=== PATIENT | female | born 1970 | race Caucasian/White ===

== ENCOUNTER 2017-05-21 19:20 | Emergency (ER) | payer MEDICARE ==
[~2017-05-21] VITALS: Ht 170.2 cm; Wt 72.6 kg
[~2017-05-21 19:20] MED LIST: DILANTIN100 MG; PYRIDOSTIGMINE60 MG; SPIRONOLACTONE25 MG; Z.0.BACLOFEN10 MG PO; Z.0.DILANTIN100 MG PO; Z.0.EFFEXOR75 MG PO; [UNRECOGNIZED DRUG - OTHER]
--- OUTSIDE RECORDS SUMMARY | 2017-05-21 19:23 | XMS REPORT ---
Author Author [facility] Organization [facility] Address Unknown Phone Unavailable Care Team Providers Care [employer] Worker Name Role Phone MELODIE HERNANDEZ Unavailable Unavailable Problems This patient has no known problems. Allergies, Adverse Reactions, Alerts This patient has no known allergies or adverse reactions. Medications This patient has no known medications. Results Test Description Test Time Test Comments Text Results Atomic Results Result Comments ANKLE 3 + VIEWS RIGHT [place] [address] Patient Name: MERCY MCCAULEY MR #: [id number] : 1970 Age/Sex: 46/F Req #: [id number] [facility] Physician: Ordered by: CARLEY COLLINS Report #: [id number] Location: ER Room/Bed: Procedure: [id number] DX/ANKLE 3 + VIEWS RIGHT Exam Date: 01/10/17 Exam Time: 1220 REPORT STATUS: Signed PROCEDURE: X-RAY RIGHT ANKLE, COMPLETE TECHNIQUE: INDICATION: COMPARISON: None. FINDINGS: No acute displaced fracture. Soft tissue swelling is present in the lateral malleolus. No expansile lytic or sclerotic lesion. Bone mineralization is within normal limits. CONCLUSION: Subcutaneous swelling of the lateral malleolus, without underlying osseous abnormality, may represent soft tissue injury. Dictated by: Juan Manuel Lorenzo M.D. on 01/10/2017 at 13:41 Electronically approved by: Juan Manuel Lorenzo M.D. on 06/2016 at 13:41 Dictated By: JUAN MANUEL LORENZO MD 40 Transcribed By: CANDELARIA on 01/10/171340 COPY TO: CARLEY COLLINS LOWER LEG RIGHT [facility] [address] [place] [address] Patient Name: MERCY MCCAULEY MR #: [id number] : 1970 Age/Sex: 46/F Req #: [id number] Adm Physician: Ordered by: CARLEY COLLINS Report #: [id number] Location: ER Room/Bed: Procedure: [id number] DX/LOWER LEG RIGHT Exam Date: 01/10/17 Exam Time: 1220 REPORT STATUS: Signed PROCEDURE: X-RAY RIGHT LOWER LEG COMPARISON: None. INDICATIONS: FALL FINDINGS: There are no fractures, dislocations, lytic or blastic lesions. The bones are well- mineralized. Soft tissue swelling of the lateral malleolus. CONCLUSION : Soft tissue swelling of the lateral malleolus, without underlying osseous abnormality, may represent a ligamentous injury. Dictated by: Juan Manuel Lorenzo M.D. on 01/10/2017 at 13:44 Electronically approved by: Juan Manuel Lorenzo M.D. on 01/10/2017 at 13:44 Dictated By: JUAN MANUEL LORENZO MD 43 Transcribed By: CANDELARIA on 01/10/17 134 COPY TO: CARLEY COLLINS FEMUR TWO VIEW MINIMUM RIGHT [facility] [address] [place] [address] Patient Name: MERCY MCCAULEY MR #: [id number] : 1970 Age/Sex: 46/F Req #: [id number] Adm Physician: Ordered by: CARLEY COLLINS Report #: [id number] Location: ER Room/Bed: Procedure: [id number] DX/FEMUR TWO VIEW MINIMUM RIGHT Exam Date: Exam Time: REPORT STATUS: Signed PROCEDURE: FEMUR TWO VIEW MINIMUM RIGHT COMPARISON: None. INDICATIONS: FALL FINDINGS: There are no fractures, dislocations, lytic or blastic lesions. The bones are well-mineralized. The soft-tissues are unremarkable. CONCLUSION: No acute radiographic abnormality. Dictated by: Juan Manuel Lorenzo M.D. on 01/10/2017 at 13:44 Electronically approved by: Juan Manuel Lorenzo M.D. on 01/10/2017 at 13:44 Dictated By: JUAN MANUEL LORENZO MD 43 Transcribed By: CANDELARIA on 01/10/17 134 COPY TO: CARLEY COLLINS PELVIS AP 1-2 VIEWS [place] [address] Patient Name: MERCY MCCAULEY MR #: [id number] : 1970 Age/Sex: 46/F Req #: [id number] Adm Physician: Ordered by: CARLEY COLLINS Report #: [id number] Location: ER Room/Bed: Procedure: [id number] DX/PELVIS AP 1-2 VIEWS Exam Date: 01/10/17 Exam Time : 1220 REPORT STATUS: Signed PROCEDURE: X-RAY PELVIS, AP VIEW COMPARISON: None. INDICATIONS: FALL FINDINGS: There are no fractures, dislocations, lytic or blastic lesions. The bones are well- mineralized. The soft-tissues are unremarkable. Phleboliths are present in the pelvis. CONCLUSION: No acute radiographic abnormality. Dictated by: Juan Manuel Lorenzo M.D. on 01/10/2017 at 13:49 Electronically approved by: Juan Manuel Lorenzo M.D. on 01/10/2017 at 13:49 Dictated By: JUAN MANUEL LORENZO MD [id number] COPY TO: CARLEY COLLINS
[2017-05-21] MEDS ORDERED: TYLENOL WITH C1 EACH PO (22:30)
[2017-05-21] MEDS ORDERED: ROBAXIN-750750 MG PO (22:38)
== END 2017-05-21 23:00 | disposition home or self-care (01) ==
LOC: FSED 19:20
DX: R07.89 Other chest pain (principal); S22.31XA Fracture of one rib, right side, initial encounter for closed fracture; W01.0XXA Fall on same level from slipping, tripping and stumbling without subsequent striking against object, initial encounter; Y93.01 Activity, walking, marching and hiking; Y92.008 Other place in unspecified non-institutional (private) residence as the place of occurrence of the external cause; G80.9 Cerebral palsy, unspecified; G40.909 Epilepsy, unspecified, not intractable, without status epilepticus

== ENCOUNTER 2018-04-07 12:28 | Emergency (ER) | payer MEDICARE ==
[~2018-04-07] VITALS: Ht 170.2 cm; Wt 72.6 kg
[~2018-04-07 12:28] MED LIST changes: +ROBAXIN-750750 MG PO; +TYLENOL WITH C1 EACH PO
[2018-04-07] MEDS ORDERED: ROBAXIN-750750 MG PO (13:04)
[2018-04-07] MEDS ORDERED: IBUPROFEN400 MG PO (13:04)
== END 2018-04-07 13:35 | disposition home or self-care (01) ==
LOC: FSED 12:37
DX: G89.11 Acute pain due to trauma (principal); S30.0XXA Contusion of lower back and pelvis, initial encounter; S39.012A Strain of muscle, fascia and tendon of lower back, initial encounter; W18.09XA Striking against other object with subsequent fall, initial encounter; Y92.008 Other place in unspecified non-institutional (private) residence as the place of occurrence of the external cause; G80.9 Cerebral palsy, unspecified; F41.9 Anxiety disorder, unspecified; G40.909 Epilepsy, unspecified, not intractable, without status epilepticus
CPT/HCPCS: 99283

== ENCOUNTER 2020-10-09 14:16 | Emergency (ER) | payer MEDICARE, OTHER ==
[~2020-10-09] VITALS: Ht 167.6 cm; Wt 73.5 kg
[~2020-10-09 14:16] MED LIST changes: +IBUPROFEN400 MG PO
== END 2020-10-09 19:19 | disposition home or self-care (01) ==
LOC: FSED 15:26
DX: S00.83XA Contusion of other part of head, initial encounter (principal); W01.198A Fall on same level from slipping, tripping and stumbling with subsequent striking against other object, initial encounter; Y93.01 Activity, walking, marching and hiking; Y92.008 Other place in unspecified non-institutional (private) residence as the place of occurrence of the external cause; G80.9 Cerebral palsy, unspecified; G40.909 Epilepsy, unspecified, not intractable, without status epilepticus; F41.9 Anxiety disorder, unspecified; E03.9 Hypothyroidism, unspecified
CPT/HCPCS: 70450; 99283

== ENCOUNTER 2022-09-25 10:42 | Emergency (ER) | payer MEDICARE ==
[~2022-09-25] VITALS: Ht 170.2 cm; Wt 73.9 kg
[2022-09-25 10:58] VITALS: O2SAT 97
[2022-09-25] MEDS ORDERED: IBUPROFEN600 MG PO (11:50)
[2022-09-25] MEDS ORDERED: IBUPROFEN 600 MG TAB PO STA (11:52)
[2022-09-25] MEDS ORDERED: IBUPROFEN 600 MG TAB ONE (12:10)
== END 2022-09-25 12:48 | disposition home or self-care (01) ==
LOC: FSED 10:47
DX: S93.491A Sprain of other ligament of right ankle, initial encounter (principal); W01.0XXA Fall on same level from slipping, tripping and stumbling without subsequent striking against object, initial encounter; Y92.89 Other specified places as the place of occurrence of the external cause; G80.9 Cerebral palsy, unspecified; G40.909 Epilepsy, unspecified, not intractable, without status epilepticus; F41.9 Anxiety disorder, unspecified
CPT/HCPCS: 99283

== ENCOUNTER 2023-02-12 10:11 | Emergency (ER) | payer OTHER, MEDICARE ==
[~2023-02-12] VITALS: Ht 170.2 cm; Wt 73.9 kg
[~2023-02-12 10:11] MED LIST changes: +IBUPROFEN600 MG PO
[2023-02-12] MEDS ORDERED: TETANUS/DIPHTHERIA TOX ADULT 0.5 ML SYR ONE (10:59)
[2023-02-12] MEDS ORDERED: BACITRACIN ZINC 0.9GM TP ONE (11:00)
[2023-02-12] MEDS ORDERED: TETANUS/DIPHTHERIA TOX ADULT 0.5 ML SYR IM ONE (11:30)
[2023-02-12 12:00] VITALS: O2SAT 98
[2023-02-12] MEDS ORDERED: CEFDINIR300 MG PO (12:03)
== END 2023-02-12 12:14 | disposition home or self-care (01) ==
LOC: FSED 10:18
DX: S02.2XXA Fracture of nasal bones, initial encounter for closed fracture (principal); S60.512A Abrasion of left hand, initial encounter; W01.0XXA Fall on same level from slipping, tripping and stumbling without subsequent striking against object, initial encounter; Y93.01 Activity, walking, marching and hiking; Y92.89 Other specified places as the place of occurrence of the external cause; G40.909 Epilepsy, unspecified, not intractable, without status epilepticus; F41.9 Anxiety disorder, unspecified; G80.9 Cerebral palsy, unspecified
CPT/HCPCS: 70450; 70486; 72125; 90471; 90714; 99283

== ENCOUNTER 2023-10-23 15:42 | Emergency (ER) | payer MEDICARE ==
[~2023-10-23] VITALS: Ht 170.2 cm; Wt 73.9 kg
[~2023-10-23 15:42] MED LIST changes: +CEFDINIR300 MG PO
[2023-10-23 15:45] VITALS: RESP 18; TEMP 98.7
[2023-10-23] MEDS: ACETAMINOPHEN 325 MG TAB PO ONE (17:12)
[2023-10-23 17:30] VITALS: PULSE 70
[2023-10-23] MEDS: TETANUS/DIPHTHERIA TOX ADULT 0.5 ML SYR IM ONE (18:37)
[2023-10-23 18:55] VITALS: BP 110/71; PULSE 64; RESP 16; O2SAT 100
== END 2023-10-23 18:55 | disposition home or self-care (01) ==
LOC: ER 15:58
DX: S01.01XA Laceration without foreign body of scalp, initial encounter (principal); S00.03XA Contusion of scalp, initial encounter; W10.2XXA Fall (on)(from) incline, initial encounter; Y92.238 Other place in hospital as the place of occurrence of the external cause; Z23 Encounter for immunization; G40.909 Epilepsy, unspecified, not intractable, without status epilepticus; F41.9 Anxiety disorder, unspecified; Z79.899 Other long term (current) drug therapy
CPT/HCPCS: 70450; 72125; 90471; 90714; 99283

== ENCOUNTER 2024-08-17 11:23 | Emergency (ER) | payer MEDICARE ==
[~2024-08-17] VITALS: Ht 170.2 cm; Wt 69.6 kg
[2024-08-17] MEDS ORDERED: KEPPRA500 MG PO (11:56)
[2024-08-17] MEDS: LEVETIRACETAM 500MG/5ML VIAL 500 MG in SODIUM CHLORIDE 0.9% 100 ML IV SCH (12:32)
[2024-08-17 13:41] VITALS: PULSE 56; RESP 16; TEMP 97.6; O2SAT 99
== END 2024-08-17 13:46 | disposition other institution (70) ==
LOC: FSED 11:28
DX: G40.909 Epilepsy, unspecified, not intractable, without status epilepticus (principal); R51.9 Headache, unspecified; F41.9 Anxiety disorder, unspecified; G80.9 Cerebral palsy, unspecified
CPT/HCPCS: 70450; 80053; 81003; 82542; 85025; 99284; J1953; J7050

== ENCOUNTER 2024-10-26 17:22 | Emergency (ER) | payer MEDICARE ==
[~2024-10-26] VITALS: Ht 170.2 cm; Wt 69.4 kg
[~2024-10-26 17:22] MED LIST changes: +KEPPRA500 MG PO
[2024-10-26 17:55] VITALS: TEMP 97.9
[2024-10-26] MEDS ORDERED: MIDAZOLAM HCL 2 MG/2 ML VIAL ONE (18:30)
[2024-10-26] MEDS ORDERED: LEVETIRACETAM 500 MG/5 ML VIAL IV ONE (18:33)
[2024-10-26] MEDS ORDERED: SODIUM CHLORIDE 0.9% 100 ML ONE (18:33)
[2024-10-26 18:34] LABS: BASOPHILS % 1.0 % (0.0-1.0); EOSINOPHILS % 0.0 % (0.0-6.0); LYMPHOCYTES % 13.8 % (18.0-39.1); MONOCYTES % 10.1 % (4.4-11.3); NEUTROPHILS % 74.6 % (38.7-80.0); RED CELL DISTRIBUTION WIDTH 12.3 % (11.7-14.4)
[2024-10-26] MEDS: LEVETIRACETAM 1000MG/100ML IV 100 ML IV ONE (18:37)
[2024-10-26 18:48] LABS: EST GLOMERULAR FILTRATION RATE 86.0 ML/MIN (>=60)
[2024-10-26 19:31] VITALS: PULSE 73; RESP 16; O2SAT 95
[2024-10-26 21:07] LABS: LEUKOCYTE ESTERASE ,URINE NEGATIVE (NEGATIVE); PROTEIN,URINE DIPSTICK 1+ (NEGATIVE)
[2024-10-26 21:08] LABS: URINE UROBILINOGEN 1 mg/dL (0.2 - 1)
[2024-10-26 21:15] LABS: EPITHELIAL CELLS,URINE MANY /LPF
[2024-10-26] MEDS ORDERED: CEFDINIR300 MG PO (21:24)
[2024-10-26 22:39] VITALS: BP 115/81; PULSE 61; RESP 18; TEMP 98
== END 2024-10-26 22:44 | disposition home or self-care (01) ==
LOC: ER 18:04
DX: S01.01XA Laceration without foreign body of scalp, initial encounter (principal); W22.09XA Striking against other stationary object, initial encounter; Y92.89 Other specified places as the place of occurrence of the external cause; G40.909 Epilepsy, unspecified, not intractable, without status epilepticus; G80.9 Cerebral palsy, unspecified; F41.9 Anxiety disorder, unspecified; F32.A Depression, unspecified
CPT/HCPCS: 12002; 36415; 70450; 72125; 80053; 81001; 84484; 85025; 87086; 87186; 93005; 94760; 99284; J0696; J1953; J7050; J2250

== ENCOUNTER 2024-11-16 11:41 | Emergency (ER) | payer MEDICARE ==
[~2024-11-16] VITALS: Ht 167.6 cm; Wt 68.0 kg
[2024-11-16 12:08] VITALS: TEMP 98.6
[2024-11-16 14:00] VITALS: PULSE 69; RESP 18
[2024-11-16] MEDS ORDERED: CEFDINIR300 MG PO (14:47)
[2024-11-16 15:07] VITALS: BP 129/84; PULSE 67; RESP 18; TEMP 98.8; O2SAT 100
== END 2024-11-16 15:05 | disposition home or self-care (01) ==
LOC: FSED 12:18
DX: R30.0 Dysuria (principal); N39.0 Urinary tract infection, site not specified; G40.909 Epilepsy, unspecified, not intractable, without status epilepticus; F41.9 Anxiety disorder, unspecified; F32.A Depression, unspecified; G80.9 Cerebral palsy, unspecified
CPT/HCPCS: 87086; 87186; 99283